=== PATIENT | male | born 1975 | race Caucasian/White ===

== ENCOUNTER 2016-09-10 15:20 | Emergency (ER) | payer SELFPAY ==
[~2016-09-10] VITALS: Ht 188 cm; Wt 86.2 kg
[2016-09-10 15:26] VITALS: BP 143/79
[2016-09-10] MEDS ORDERED: AMOX500C PO (15:46)
--- NOTE | 2016-09-10 15:47 | PHYS DOC ---
Past Medical History Past Medical History: No Pertinent History Past Surgical History: No Surgical History Alcohol Use: None Drug Use: None Adult General Chief Complaint Chief Complaint: DENTAL PROBLEM HPI HPI Patient is a 40 year old male presents to the emergency department stating that he has frontal dental pain for the last 2-3 days. Patient states that he does not versus teeth. He states that he does not have a dentist and does not have the money to pay upfront for dental appointment. Patient denies any fever, chills or any nausea vomiting. He does state he has had bad taste in the mouth. Review of Systems Review of Systems Constitutional: Denies fever or chills [] Eyes: Denies change in visual acuity, redness, or eye pain [] HENT: Denies nasal congestion or sore throat. Frontal dental pain Respiratory: Denies cough or shortness of breath [] Cardiovascular: No additional information not addressed in HPI [] GI: Denies abdominal pain, nausea, vomiting, bloody stools or diarrhea [] : Denies dysuria or hematuria [] Musculoskeletal: Denies back pain or joint pain [] Integument: Denies rash or skin lesions [] Neurologic: Denies headache, focal weakness or sensory changes [] Endocrine: Denies polyuria or polydipsia [] Physical Exam Physical Exam Constitutional: Well developed, well nourished, no acute distress, non-toxic appearance. [] HENT: Normocephalic, atraumatic, bilateral external ears normal, oropharynx moist, no oral exudates, nose normal. Bilateral tympanic membranes appear to be normal. Patient with teeth that appear to be decayed and not while taking care of throughout the mouth. The front 2 upper teeth appear to have abscesses noted at the gumline. No drainage or discharge noted. Eyes: PERRLA, EOMI, conjunctiva normal, no discharge. [] Neck: Normal range of motion, no tenderness, supple, no stridor. [] Cardiovascular:Heart rate regular rhythm, no murmur [] Lungs & Thorax: Bilateral breath sounds clear to auscultation [] Skin: Warm, dry, no erythema, no rash. [] Back: No tenderness Extremities: No tenderness, no cyanosis, no clubbing, ROM intact, no edema. [] Neurologic: Alert and oriented X 3, normal motor function, normal sensory function, no focal deficits noted. [] Psychologic: Affect normal, judgement normal, mood normal. [] Current Patient Data Vital Signs Vital Signs Date Time Temp Pulse Resp B/P (MAP) Pulse Ox O2 Delivery O2 Flow Rate FiO2 09/10/16 15:26 97.8 96 24 96 Room Air 97.8 EKG EKG [] Radiology/Procedures Radiology/Procedures [] Course & Med Decision Making Course & Med Decision Making Pertinent Labs and Imaging studies reviewed. (See chart for details) Patient was recommended to use ibuprofen 800 mg every 8 hours with food stop taking if he developed upset stomach. He will also be provided with amoxicillin 1 tablet 4 times a day for the next 10 days. Patient will be provided with a dental list in which she can follow-up with. Patient was also encouraged to brush his teeth twice today and floss. Patient was encouraged to follow-up with the dentist within the next week. Since symptoms to return back to emergency department as been provided. Patient agrees with discharge instructions treatment regimens and follow-up recommendations. [] Dragon Disclaimer Dragon Disclaimer This electronic medical record was generated, in whole or in part, using a voice recognition dictation system. Departure Departure Impression: Primary Impression: Dental abscess Disposition: HOME, SELF-CARE Condition: STABLE Referrals: NON,STAFF (PCP) Patient Instructions: Dental Abscess Additional Instructions: It is important that you floss her teeth twice today and pressure teeth twice a day. You may also use warm salt water mouth rinses to help with infection. Medication as prescribed. Ibuprofen 800 mg every 8 hours to help with pain and discomfort. Take this medication with food to prevent stomach upset. Follow-up with the dentist within the next week. Return back to emergency department sign symptoms become worse. Scripts Amoxicillin (AMOXICILLIN) 500 Mg Capsule 1 CAP PO QID, #40 CAP Prov: JER COLLIER APRN 09/10/16 JER COLLIER TEACHER EDUCATION DIRECTOR Sep 10, 2016 15:47
== END 2016-09-10 16:00 | disposition home or self-care (01) ==
LOC: ER 15:20
DX: K04.7 Periapical abscess without sinus (principal)
CPT/HCPCS: 99283